=== PATIENT | female | born 1995 | race African-American/Black ===

== ENCOUNTER 2016-10-07 05:36 | Emergency (ER) | payer BC ==
[~2016-10-07] VITALS: Ht 177.8 cm; Wt 129.3 kg
[2016-10-07 05:40] VITALS: BP 167/93
[2016-10-07] MEDS ORDERED: AMOX1TAB11 PO (06:18)
[2016-10-07] MEDS ORDERED: HYDR-971 PO (06:18)
--- NOTE | 2016-10-07 06:18 | PHYS DOC ---
Past Medical History Past Medical History: No Pertinent History Past Surgical History: No Surgical History Alcohol Use: Occasionally Drug Use: Marijuana Adult General Chief Complaint Chief Complaint: EARACHE/EAR PAIN HPI HPI Patient is a 20 year old female complaining of right ear pain. About 4 days ago , the patient felt like her right ear was itchy and clogged up. Over the past one day it has been painful. She has no history of ear infection or other ear problems. She did use a Q-tip but nothing else in her ear. She denies sinus infection, denies cold or allergy symptoms. No chronic medical problems. Review of Systems Review of Systems Constitutional: Denies fever or chills [] Eyes: Denies change in visual acuity, redness, or eye pain [] HENT: As in history of present illness Respiratory: Denies cough or shortness of breath [] Integument: Denies rash or skin lesions [] Neurologic: Denies headache, focal weakness or sensory changes [] Current Medications Current Medications Current Medications Medications (Trade) Dose Ordered Sig/Mark Start Time Stop Time Status Last Admin Dose Admin Acetaminophen/ Hydrocodone Bitart (Lortab 7.5/325) 1 tab 1X ONCE 10/07/16 06:30 10/07/16 06:31 DC 10/07/16 06:27 1 TAB Allergies Allergies Allergies Coded Allergies Type Severity Reaction Last Updated Verified No Known Drug Allergies 03/19/15 No Physical Exam Physical Exam Constitutional: Well developed, well nourished, no acute distress, non-toxic appearance. [] HENT: Normocephalic, atraumatic, nose normal. Left EAC and TM normal. Right EAC slightly reddened, right TM red and bulging. Oropharynx moist without lesions. Tonsils not enlarged, no tonsillitis or exudates. Eyes: conjunctiva normal, no discharge. [] Neck: Normal range of motion, no stridor. [] Skin: Warm, dry, no erythema, no rash. [] Extremities: No tenderness, no cyanosis, no clubbing, ROM intact, no edema. [] Neurologic: Alert and oriented X 3, normal motor function, normal sensory function, no focal deficits noted. [] Current Patient Data Vital Signs Vital Signs Date Time Temp Pulse Resp B/P Pulse Ox O2 Delivery O2 Flow Rate FiO2 10/07/16 06:27 20 98 Room Air 10/07/16 05:40 97.5 76 97.5 EKG EKG [] Radiology/Procedures Radiology/Procedures [] Course & Med Decision Making Course & Med Decision Making Pertinent Labs and Imaging studies reviewed. (See chart for details) [] Dragon Disclaimer Dragon Disclaimer This electronic medical record was generated, in whole or in part, using a voice recognition dictation system. Departure Departure Impression: Primary Impression: Right otitis media Disposition: HOME, SELF-CARE Condition: STABLE Referrals: NO PCP (PCP) Patient Instructions: Otitis Media, Adult, [id number] Additional Instructions: Take ibuprofen 800 mg every 8 hours for pain. If you need something stronger, take the hydrocodone as prescribed. It is okay to combine the hydrocodone with ibuprofen. Hydrocodone is an opiate, do not take while working or driving, it will cause you to be sleepy and constipated. It will take 2 or 3 days for the ear pain to get better and you may have some congestion for a week or 2. Also purchase an [id number] decongestant such as Sudafed and take as directed for congestion. Scripts Fluconazole (Diflucan)150 Mg Tablet1 Tab PO ONCE #2 TAB Ref 1 Take 1 at first sign of yeast infection [place] second tablet for when antibiotics are finished in case you need a second dose Prov:MAGALI NICOLAS MD 10/07/16 Hydrocodone/Apap 5-325 (Paloma 5-325 Tablet)1 Each Tablet1-2 Tab PO Q4-6HRS #14 TAB For pain from ear infection Prov:MAGALI NICOLAS MD 10/07/16 Amoxicillin/Potassium Clav (Amox Tr-K Clv 875-125 Mg Tab)1 Each Tablet1 Tab PO BID #20 TAB For ear infection Prov:MAGALI NICOLAS MD 10/07/16 MAGALI NICOLAS MD Oct 07, 2016 06:18
[2016-10-07] MEDS ORDERED: HYDROCODONE/APAP 7.5/325MG TABLET. PO ONE (06:30)
[2016-10-07] MEDS ORDERED: FLUC150T PO (06:30)
== END 2016-10-07 06:34 | disposition home or self-care (01) ==
LOC: ER 05:36
DX: H66.91 Otitis media, unspecified, right ear (principal); F12.10 Cannabis abuse, uncomplicated
CPT/HCPCS: 99283

== ENCOUNTER 2017-11-10 20:40 | Emergency (ER) | payer BC ==
[2017-11-10 21:16] LABS: BILIRUBIN,URINE NEGATIVE (NEG); CLARITY,URINE CLEAR; COLOR,URINE YELLOW; GLUCOSE,URINE NEGATIVE (NEG); NITRITE,URINE NEGATIVE (NEG); PH,URINE 6.5; PROTEIN,URINE NEGATIVE (NEG-TRACE)
[2017-11-10 21:24] LABS: NEG OBC UR NEG; POS OBC UR POS; U PREG PATIENT NEGATIVE (NEG)
[2017-11-10 21:25] LABS: ADD MAN DIFF? NO
[2017-11-10 21:27] LABS: BASO % 0 % (0-3); EOS # 0.1 x10^3/uL (0.0-0.7); EOS % 1 % (0-3); HEMATOCRIT 38.3 % (36.0-47.0); HEMOGLOBIN 13.1 g/dL (12.0-15.5); LYMPH # 4.3 x10^3/uL (1.0-4.8); LYMPH % 38 % (24-48); MEAN CORPUSCULAR HEMOGLOBIN 31 pg (25-35); MEAN CORPUSCULAR HGB CONC 34 g/dL (31-37); MEAN CORPUSCULAR VOLUME 90 fL (79-100); MONO # 1.2 x10^3/uL (0.0-1.1); MONO % 11 % (0-9); NEUT # 5.7 x10^3uL (1.8-7.7); NEUT % 50 % (31-73); PLATELET COUNT 263 x10^3/uL (140-400); RED BLOOD COUNT 4.25 x10^6/uL (3.50-5.40); RED CELL DISTRIBUTION WIDTH 13.7 % (11.5-14.5); WHITE BLOOD COUNT 11.3 x10^3/uL (4.0-11.0)
[2017-11-10 21:29] LABS: RBC,URINE 20-40 /HPF (0-2); WBC,URINE OCC /HPF (0-4)
[2017-11-10 21:30] LABS: BACTERIA,URINE 0 /HPF (0-FEW); SQUAMOUS EPITHELIAL CELL,UR FEW /LPF
== END 2017-11-10 22:00 | disposition home or self-care (01) ==
LOC: ER 20:40
DX: N92.0 Excessive and frequent menstruation with regular cycle (principal); F12.10 Cannabis abuse, uncomplicated
CPT/HCPCS: 36415; 81001; 81025; 85025; 99284

== ENCOUNTER 2017-12-03 07:16 | Emergency (ER) | payer OTHER, BC | END 2017-12-03 07:55 | disposition home or self-care (01) | LOC: ER 07:16 | DX: B02.9 Zoster without complications (principal); F12.10 Cannabis abuse, uncomplicated | CPT/HCPCS: 99283 ==

== ENCOUNTER 2020-06-18 14:02 | Emergency (ER) | payer SELFPAY ==
[~2020-06-18] VITALS: Ht 180.3 cm; Wt 127.2 kg
[~2020-06-18 14:02] MED LIST: ACYC800T PO; AMOX1TAB11 PO; ESOM20CA PO; ESOM40CA PO; FLUC150T PO; HYDR-3164 PO; IBUP-1060 PO; METO10TA81 PO; SERT25TA PO; SUCR1TAB35 PO
[2020-06-18 14:56] VITALS: BP 161/108
[2020-06-18] MEDS ORDERED: PRED20TA PO (15:09)
--- NOTE | 2020-06-18 15:09 | PHYS DOC ---
Past Medical History Past Medical History: Anxiety, P.U.D. (KAIDEN CHRISTOPHER APRN) Past Surgical History: No Surgical History (KAIDEN CHRISTOPHER APRN) Smoking Status: Never Smoker Alcohol Use: Occasionally Drug Use: Marijuana (KAIDEN CHRISTOPHER APRN) General Adult EDM: Chief Complaint: SKIN RASH/ABSCESS HPI: HPI: Patient is a 24 year old female presents to the emergency room for evaluation of rash to her face that started yesterday at work. 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 She is unsure what she came in contact with but last night she started having areas of pruritic rash to her face and when she woke up this morning there was more rash diffusely spread through her face. There is no rash on her neck or other parts of her body. She is not having any fevers or sore throat. (KAIDEN CHRISTOPHER APRN) Review of Systems: Review of Systems: Constitutional: Denies fever or chills. [] Eyes: Denies change in visual acuity. [] HENT: Denies nasal congestion or sore throat. [] Respiratory: Denies cough or shortness of breath. [] Cardiovascular: Denies chest pain or edema. [] GI: Denies abdominal pain, nausea, vomiting, bloody stools or diarrhea. [] : Denies dysuria. [] Musculoskeletal: Denies back pain or joint pain. [] Integument: Reports rash. [] Neurologic: Denies headache, focal weakness or sensory changes. [] Endocrine: Denies polyuria or polydipsia. [] Lymphatic: Denies swollen glands. [] Psychiatric: Denies depression or anxiety. [] (KAIDEN CHRISTOPHER APRN) Heart Score: Risk Factors: Risk Factors: DM, Current or recent (<one month) smoker, HTN, HLP, family history of CAD, obesity. Risk Scores: Score 0 - 3: 2.5% MACE over next 6 weeks - Discharge Home Score 4 - 6: 20.3% MACE over next 6 weeks - Admit for Clinical Observation Score 7 - 10: 72.7% MACE over next 6 weeks - Early Invasive Strategies (KAIDEN CHRISTOPHER APRN) Allergies: Allergies: Allergies Coded Allergies Type Severity Reaction Last Updated Verified No Known Drug Allergies 03/19/15 No (KAIDEN CHRISTOPHER APRN) Physical Exam: PE: Constitutional: Well developed, well nourished, no acute distress, non-toxic appearance. [] HENT: Normocephalic, atraumatic, bilateral external ears normal, oropharynx moist, no oral exudates, nose normal. [] Eyes: PERRLA, EOMI, conjunctiva normal, no discharge. [] Neck: Normal range of motion, no tenderness, supple, no stridor. [] Cardiovascular:Heart rate regular rhythm, no murmur [] Lungs & Thorax: Bilateral breath sounds clear to auscultation [] Skin: Pinpoint erythematous rash diffusely scattered on face, sparing neck or other parts of body [] Back: No tenderness, no CVA tenderness. [] Extremities: No tenderness, no cyanosis, no clubbing, ROM intact, no edema. [] Neurologic: Alert and oriented X 3, normal motor function, normal sensory function, no focal deficits noted. [] Psychologic: Affect normal, judgement normal, mood normal. [] (KAIDEN CHRISTOPHER APRN) Current Patient Data: Vital Signs: Current Medications Medications (Trade) Dose Ordered Sig/Mark Route PRN Reason Start Time Stop Time Status Last Admin Dose Admin Prednisone (Prednisone) 50 mg 1X ONCE PO 06/18/20 15:15 06/18/20 15:16 DC (KAIDEN CHRISTOPHER APRN) EKG: EKG: [] (KAIDEN CHRISTOPHER APRN) Radiology/Procedures: Radiology/Procedures: [] (KAIDEN CHRISTOPHER APRN) Course & Med Decision Making: Course & Med Decision Making Pertinent Labs and Imaging studies reviewed. (See chart for details) [] Patient is started on prednisone, she has not having any oropharyngeal swelling or difficulty breathing, recommend [id number] Benadryl every 6-8 hours for symptomatic relief of itching. She will follow-up with her primary care doctor in 2 to 3 days and return to ER for new or worsening symptoms. (KAIEDN CHRISTOPHER APRN) Course & Med Decision Making I have reviewed the PA/BRANCH LIBRARY CLERK's note and Plan of Care. I was available for consultation as needed during the patient's visit in the emergency department. I agree with the clinical impression, plans and disposition. (STONEY LIEBERMAN Disclaimer: [place] Disclaimer: This electronic medical record was generated, in whole or in part, using a voice recognition dictation system. (KAIDEN CHRISTOPHER APRN) Departure Departure Impression: Primary Impression: Rash Disposition: 01 DC HOME SELF CARE/HOMELESS Referrals: NO PCP (PCP) Patient Instructions: Rash Scripts Prednisone (PREDNISONE) 20 Mg Tablet 40 MG PO DAILY for 5 Days, #10 TAB Prov: KAIDEN CHRISTOPHER APRN 06/18/20 KAIDEN CHRISTOPHER APRN Jun 18, 2020 15:09 STONEY LIEBERMAN MD Jun 18, 2020 16:27
[2020-06-18] MEDS ORDERED: predniSONE 10 MG TABLET PO ONE (15:15)
== END 2020-06-18 15:46 | disposition home or self-care (01) ==
LOC: ER 14:02
DX: R21 Rash and other nonspecific skin eruption (principal)
CPT/HCPCS: 99283; J7512